=== PATIENT | male | born 1985 | race Caucasian/White ===

== ENCOUNTER 2022-12-21 18:27 | Emergency (ER) | payer OTHER ==
[2022-12-21 18:41] VITALS: BP 112/76; PULSE 60; RESP 19; TEMP 98.3; BMI 29.2
[2022-12-21] MEDS ORDERED: IBUPROFEN 600 MG TABLET (FP) PO ONE ×2 (19:58→20:02)
[2022-12-21] MEDS ORDERED: BACITRACIN ZINC 15 GM TUBE TOPICAL OINTMENT TP ONE (19:58)
[2022-12-21] MEDS ORDERED: ACETAMINOPHEN 500 MG TABLET (FP) PO ONE (19:58)
[2022-12-21] MEDS ORDERED: ACETAMINOPHEN 500 MG TABLET (FP) ONE (20:02)
== END 2022-12-21 20:59 | disposition home or self-care (01) ==
LOC: JERFT 18:27 → JER 18:27 → JERFT 20:59
DX: S30.811A Abrasion of abdominal wall, initial encounter (principal); R19.00 Intra-abdominal and pelvic swelling, mass and lump, unspecified site; W22.8XXA Striking against or struck by other objects, initial encounter; Y99.0 Civilian activity done for income or pay
CPT/HCPCS: 74018-TC-FY; 99283-25